=== PATIENT | male | born 1990 | race Two or more races ===

== ENCOUNTER 2024-01-26 14:16 | Emergency (ER) | payer BC ==
[~2024-01-26] VITALS: Ht 172.7 cm; Wt 88.5 kg
[2024-01-26 14:43] VITALS: BP 168/98; TEMP 98.5; O2SAT 100
== END 2024-01-26 16:16 | disposition home or self-care (01) ==
LOC: ER 14:19
DX: R03.0 Elevated blood-pressure reading, without diagnosis of hypertension (principal); Z60.2 Problems related to living alone